=== PATIENT | male | born 1980 ===

== ENCOUNTER → 2019-05-29 11:57 | Day surgery (SDC) | payer OTHER ==
[~2019-05-29 11:57] MED LIST: Acetaminophen IV 1GM/100ML * 1,000 MG/100 ML VIAL IVPB ONE; Acetaminophen IV 1GM/100ML * 100 ML ONE; Buffered Lidocaine 1% SYRIN* 1 ML/SYRINGE INTRADERM ONE; Bupivacaine 0.25% SDV* 30 ML ONE; Dexamethasone IV* 4 MG/ML 1 ML (4 MG) ONE; DiMENhydriNATE IV* 50 MG/ML VIAL IV PUSH PRN; Ketorolac INJ* 30 MG/ML 1 ML VIAL ONE; Lactated Ringers 1000 ML Bag* 1,000 ML IV SCH; Lidocaine 1% w EPI 1:100,000* MDV 20 ML VIAL ONE; Lidocaine 2% PF * 5 ML VIAL ONE; Midazolam* 1 MG/ML 2 ML VIAL (2 MG) ONE; Naloxone* 0.4 MG/ML 1 ML VIAL IV PRN; Propofol* 10 MG/ML 20 ML BTL ONE; ceFAZolin 2 GM PREMIX in ORs 2 GM/50 ML BAG ONE; fentaNYL* 50 MCG/ML 2 ML VIAL (100 MCG VIAL) IV PRN; fentaNYL* 50 MCG/ML 2 ML VIAL (100 MCG VIAL) ONE
[2019-05-29 18:08] VITALS: BP 110/71
--- NOTE | 2019-05-30 01:01 | OP ---
DATE OF OPERATION: 05/29/19 - [facility] DATE OF : 80 SURGEON: Reymundo Salcedo MD BUSINESS TEST ANALYST: VIVIENNE Martinez. An assistant auto center manager was needed for the procedure to aid in positioning of the arm and retraction. ANESTHESIOLOGIST: Dr. Macdonald. ANESTHESIA: General. PRE-OP DIAGNOSES: 1. Left dorsal wrist synovitis. 2. Left wrist triangular fibrocartilage complex foveal tear. 3. Left dorsal wrist ganglion cyst. 4. Left second metacarpal dorsal boss. 5. Left carpal tunnel syndrome. POST-OP DIAGNOSES: 1. Left dorsal wrist synovitis. 2. Left wrist triangular fibrocartilage complex foveal tear. 3. Left dorsal wrist ganglion cyst. 4. Left second metacarpal dorsal boss. 5. Left carpal tunnel syndrome. OPERATIVE PROCEDURE: 1. Left wrist arthroscopic debridement of TFCC tear and dorsal synovitis. 2. Left second metacarpal dorsal boss excision. 3. Left dorsal wrist ganglion cyst excision. 4. Left endoscopic carpal tunnel release. 5. Left wrist triangular fibrocartilage complex repair. INDICATIONS: Galen has the aforementioned wrist pain. I talked to him about treatment options. He wanted to proceed with surgery. He understands the risks associated with that. He also understands that there is a risk he could have persistent pain despite doing surgery. ESTIMATED BLOOD LOSS: 2 mL. COMPLICATIONS: None. FINDINGS: See above and below. DESCRIPTION OF PROCEDURE: Mr. Zazueta was seen in the preoperative holding area. The correct side, site, and procedure were identified. We came back to the operating room. The arm was prepped and draped in the usual fashion and positioned in the Acumed traction tower. A time-out was performed. The arm was exsanguinated with the Esmarch and the tourniquet inflated. I went ahead and developed a 3/4 portal utilizing an 11 blade and mosquito, and then the camera was introduced there. A 6R portal was then created. The shaver was introduced there. There was lot of dorsal synovitis that was all excised with the shaver. The TFCC had a very vertical appearance and from the dorsal capsule. It looked like there was a substantial foveal tear. I went ahead and debrided that with a shaver. At this point, there was nothing else I could do so arthroscopically, so I withdrew the equipment and turned to the open portion of the procedure. The arm was taken out of the traction tower. I made a 1 cm incision just ulnar to the palmaris longus tendon. Dissection was carried down. A 2-prong skin hook was placed underneath the antebrachial fascia. The carpal tunnel was dilated open. The MicroAire endoscopic carpal tunnel system was then used to release the transverse carpal ligament just off the radial aspect of the hook of the hamate. The distal antebrachial fascia was then released. Once the release had been confirmed, I irrigated out the wound and the skin was closed with a 4-0 Prolene suture and Steri-Strip. I then made a longitudinal incision over the second metacarpal base near the radial aspect. Dissection was carried down. Subperiosteal flaps were raised to expose the second metacarpal boss that was excised with the osteotome with a rongeur until it was nice smooth surface. I then placed some bone wax over the cancellous bed. I then came more proximally and exposed the dorsum of the capsule over the STT joint. The ganglion cyst was excised via a marginal excision and sent off as a specimen. I then cauterized the dorsal capsule there with the Bovie. At this point, all was looking good, the wound was irrigated out. Skin was closed with 4-0 nylon suture. Lastly, I made an incision incorporating the 6R portal over the distal radioulnar joint. Dissection was carried down. The full thickness flaps were raised off the extensor retinaculum. The fifth dorsal compartment was opened. The EDM tendon was transposed. I performed a DRUJ arthrotomy and teed that back transversely just proximal to the TFCC. I then made a second arthrotomy just distal to the TFCC and the foveal fibers were indeed completely torn. There was not any foveal attachment. I went ahead and cleaned up all the degenerative tissue there. I then placed 2 DePuy mini-Mitek suture anchors in the fovea. I put a whipstitch up into the TFCC and then tied it down utilizing the other limb with 2-0 Ethibond suture. This was repeated for each pair of sutures off of the suture anchors. This provided a very nice foveal repair bringing the TFCC down in contact with the foveal bone chip that had been prepared and roughened up with the curette to get it to bleed a little bit. With the TFCC nicely repaired, I went ahead and repaired the dorsal capsule with 3- 0 Ethibond suture. The dorsal capsule was sewn down at the dorsal TFCC using the 3- 0 Ethibond suture. At this point, everything was looking very good. The wound was irrigated out. Skin was closed with 4-0 nylon suture. 0.25% Marcaine was infiltrated all around the operative areas. The 3/4 portal site was closed with a Steri-Strip. The wounds were dressed with Xeroform, 4x4s , sterile Webril and then a sugar tong splint with the forearm in neutral rotation was applied. He was taken to the recovery room in stable condition. [id number]/CPS #: [id number]
== END ==
LOC: OR 11:57
PROVIDERS: ATTEND Orthopaedic Surgery Hand Surgery
DX: M24.832 Other specific joint derangements of left wrist, not elsewhere classified (principal); M65.832 Other synovitis and tenosynovitis, left forearm; G56.02 Carpal tunnel syndrome, left upper limb; M67.432 Ganglion, left wrist; F17.210 Nicotine dependence, cigarettes, uncomplicated; F41.8 Other specified anxiety disorders
CPT/HCPCS: 88304; 88311; C1713; J0690; J1100; J1885; J2250; J2704; J3010; J3490